=== PATIENT | female | born 1955 | race Caucasian/White ===

== ENCOUNTER → 2018-08-26 | Outpatient (CLI) | payer BC ==
--- NOTE | 2018-08-26 10:06 | XR ---
EXAMINATION TYPE: XR foot complete LT DATE OF EXAM: 08/26/2018 COMPARISON: NONE HISTORY: Pain TECHNIQUE: Three views are submitted. FINDINGS: The osseous structures are intact. There is no acute fracture or dislocation. Arthropathy first MT P. Diffuse osteopenia. Soft tissue ossification along the plantar aspect of the foot. Arthropathy of the intertarsal joints.. IMPRESSION: 1. Arthropathy.
== END | disposition home or self-care (01) ==
LOC: RADXRMAIN 09:40
PROVIDERS: ATTEND Podiatrist Foot Surgery
DX: M19.072 Primary osteoarthritis, left ankle and foot (principal); M77.42 Metatarsalgia, left foot; Q66.7 Congenital pes cavus

== ENCOUNTER → 2018-08-27 | Outpatient (CLI) | payer BC ==
--- NOTE | 2018-08-27 20:55 | XR ---
EXAMINATION TYPE: XR foot complete RT DATE OF EXAM: 08/27/2018 COMPARISON: NONE HISTORY: 63-year-old female right foot pain TECHNIQUE: 3 views FINDINGS: Bipartite tibial sesamoid. Mild degenerative change first MTP joint. Osteopenia. Incidental bone rand nd within the talar head. Bulky spurring at the plantar calcaneus and some small ossification along t he plantar fascia. No acute fracture, subluxation, or dislocation seen. IMPRESSION: 1. Bulky plantar calcaneal spurring could reflect reactive changes to plantar fasciitis or injury to the plantar fascia. 2. Mild first MTP joint OA. No acute osseous abnormality seen.
== END | disposition home or self-care (01) ==
LOC: RADXRMAIN 09:40
PROVIDERS: ATTEND Podiatrist Foot Surgery
DX: M19.071 Primary osteoarthritis, right ankle and foot (principal)

== ENCOUNTER → 2018-09-03 | Outpatient (CLI) | payer BC ==
[2018-09-03 11:30] LABS: Basophils # (A) 0.1 k/uL (0-0.2); Basophils % (A) 1 %; Eosinophils # (A) 0.3 k/uL (0-0.7); Eosinophils % (A) 5 %; HGB 13.7 gm/dL (11.4-16.0); Lymphocytes # (A) 1.7 k/uL (1.0-4.8); Lymphocytes % (A) 32 %; MCH 27.3 pg (25.0-35.0); MCHC 32.6 g/dL (31.0-37.0); MCV 83.7 fL (80.0-100.0); Mean Platelet Volume 7.3; Monocytes # (A) 0.2 k/uL (0-1.0); Monocytes % (A) 4 %; Neutrophils # (A) 3.1 k/uL (1.3-7.7); Neutrophils % (A) 56 %; Platelet Count 204 k/uL (150-450); RBC 5.02 m/uL (3.80-5.40); RDW 13.9 % (11.5-15.5); WBC 5.5 k/uL (3.8-10.6)
[2018-09-03 13:05] LABS: Erythrocyte Sedimentation Rate 5 mm/hr (0-20)
[2018-09-04 11:27] LABS: HLA B27 NEGATIVE
== END | disposition home or self-care (01) ==
LOC: LABWHC1 10:52
PROVIDERS: ATTEND Podiatrist Foot Surgery
DX: M89.471 Other hypertrophic osteoarthropathy, right ankle and foot (principal); M89.472 Other hypertrophic osteoarthropathy, left ankle and foot; M06.071 Rheumatoid arthritis without rheumatoid factor, right ankle and foot; M06.072 Rheumatoid arthritis without rheumatoid factor, left ankle and foot
CPT/HCPCS: 36415; 85025; 85652; 86038; 86812

== ENCOUNTER → 2018-11-12 | Outpatient (CLI) | payer BC ==
--- NOTE | 2018-11-13 08:13 | MM ---
Reason for exam: screening (asymptomatic). Last mammogram was performed 1 year and 1 month ago. History: Patient is postmenopausal. Family history of breast cancer in sister. Physical Findings: A clinical breast exam by your physician is recommended on an annual basis and results should be correlated with mammographic findings. MG 3D Screening Mammo W/Cad Bilateral CC and MLO view(s) were taken. Prior study comparison: October 16, 2017, mammogram. September 25, 2017, mammogram. January 11, 2016, mammogram. The breast tissue is heterogeneously dense. This may lower the sensitivity of mammography. There is no discrete abnormality. ASSESSMENT: Negative, BI-RAD 1 RECOMMENDATION: Routine screening mammogram of both breasts in 1 year.
== END | disposition home or self-care (01) ==
LOC: RADMAMWWP 10:25
PROVIDERS: ATTEND Family Medicine
DX: Z12.31 Encounter for screening mammogram for malignant neoplasm of breast (principal)
CPT/HCPCS: 77063; 77067

== ENCOUNTER → 2019-08-15 | Outpatient (CLI) | payer BC ==
--- NOTE | 2019-08-15 10:16 | CT ---
EXAMINATION TYPE: CT foot LT wo con DATE OF EXAM: 08/15/2019 COMPARISON: X-ray of the left foot 08/26/2018 HISTORY: Pain in left foot CT DLP: 230.8 mGycm Automated exposure control for dose reduction was used. Unenhanced CT of the left foot was performed in the bone and soft tissue window settings. Imaging was obtained in the axial, sagittal and coronal planes. 3-D reconstruction was obtained at a separate workstation. FINDINGS: There is no evidence for fracture or dislocation. No bony destructive process is noted. No evidence f or osteomyelitis. Moderate degenerative narrowing is seen throughout the various tarsal bones with de generative narrowing and spur formation noted. Plantar calcaneal spur formation seen. Bone island not ed of the tarsal cuboid. Degenerative narrowing also noted of the tarsometatarsal joints. No signific ant hallux valgus deformity seen. IMPRESSION: CHANGES OF OSTEOARTHRITIS NOTED.
== END | disposition home or self-care (01) ==
LOC: RADCTMAIN 07:56
PROVIDERS: ATTEND Orthopaedic Surgery Foot and Ankle Surgery
DX: M19.072 Primary osteoarthritis, left ankle and foot (principal); G62.9 Polyneuropathy, unspecified

== ENCOUNTER → 2020-04-07 | Outpatient (CLI) | payer BC ==
--- NOTE | 2020-04-09 11:28 | MM ---
Reason for exam: screening (asymptomatic). Last mammogram was performed 1 year and 5 months ago. History: Patient is postmenopausal. Family history of breast cancer in sister. Took estrogen for 3 months. Physical Findings: A clinical breast exam by your physician is recommended on an annual basis and results should be correlated with mammographic findings. MG 3D Screening Mammo W/Cad Bilateral CC and MLO view(s) were taken. Prior study comparison: November 12, 2018, bilateral MG 3d screening mammo w/cad. October 16, 2017, mammogram. ASSESSMENT: Benign, BI-RAD 2 RECOMMENDATION: Routine screening mammogram of both breasts in 1 year.
== END | disposition home or self-care (01) ==
LOC: RADMAMWWP 15:10
PROVIDERS: ATTEND Obstetrics & Gynecology
DX: Z12.31 Encounter for screening mammogram for malignant neoplasm of breast (principal)
CPT/HCPCS: 77063; 77067

== ENCOUNTER → 2022-02-03 | Outpatient (CLI) | payer MEDICARE ==
--- NOTE | 2022-02-06 08:17 | MM ---
Reason for Exam: Screening (asymptomatic). Last mammogram was performed 1 year(s) and 10 month(s) ago. Patient History: Menarche at age 16. First Full-Term at age 30. Left ovary removed at age 42. Right ovary removed at age 42. Hysterectomy at age 42. Postmenopausal. Estrogen for 3 months. Sister had breast cancer. Risk Values: Samra 5 year model risk: 2.9%. NCI Lifetime model risk: 11.3%. Prior Study Comparison: 10/16/2017 Screening Mammogram, Unknown. 11/12/2018 Bilateral Screening Mammogram, [facility]. 04/07/2020 Bilateral Screening Mammogram, [facility]. Tissue Density: The breast tissue is heterogeneously dense. This may lower the sensitivity of mammography. Findings: Analyzed By CAD. There is no suspicious group of microcalcifications or new suspicious mass in either breast. Overall Assessment: Negative, BI-RAD 1 Management: Screening Mammogram of both breasts in 1 year. A clinical breast exam by your physician is recommended on an annual basis and results should be correlated with mammographic findings. Electronically signed and approved by: Apolinar Chau M.D. Radiologis
== END | disposition home or self-care (01) ==
LOC: RADMAMWWP 14:32
PROVIDERS: ATTEND Obstetrics & Gynecology
DX: Z12.31 Encounter for screening mammogram for malignant neoplasm of breast (principal); Z78.0 Asymptomatic menopausal state; Z80.3 Family history of malignant neoplasm of breast; Z90.721 Acquired absence of ovaries, unilateral
CPT/HCPCS: 77063; 77067

== ENCOUNTER → 2024-03-18 | Outpatient (CLI) | payer MEDICARE, OTHER ==
[2024-03-18 13:15] LABS: African American GFR (CKD) >90 (>60 ml/min/1.73 sqM); Blood Urea Nitrogen 19 mg/dL (7-17); Non-African American GFR(CKD) 85 (>60 ml/min/1.73 sqM)
--- NOTE | 2024-03-18 15:29 | CT ---
EXAMINATION TYPE: CT chest w con DATE OF EXAM: 03/18/2024 1:33 PM COMPARISON: None. CLINICAL INDICATION: Female, 69 years old with history of R91.1 Solitary pulmonary nodule, lung nodul e TECHNIQUE: Axial images were obtained at 5 mm thick sections. Reconstructed images are reviewed on [employer] computer in the coronal plane. Contrast used:100 mL of Isovue 300 with IV Contrast, (none if empty) Oral contrast used: (none if empty) CT DLP: 350.10 mGycm, Automated exposure control for dose reduction was used. FINDINGS: Portion of the thyroid visualized is normal. No suspicious lung nodules or focal infiltrates are present. Solitary pulmonary nodule not identified . If the patient meets criteria, consider low-dose CT chest. No enlarged mediastinal or hilar adenopathy is evident. The ascending aorta diameter at the level o f the main pulmonary artery is 3.4 cm. The main pulmonary artery diameter at the bifurcation is 3.[address] sections are obtained through the upper abdomen. Abdomen is essentially unremarkable. IMPRESSION: 1. No acute abnormality CT chest. [facility], , 03/18/2024 3:26 PM
== END | disposition home or self-care (01) ==
LOC: RADCTMAIN 12:19
PROVIDERS: ATTEND Internal Medicine
DX: R91.1 Solitary pulmonary nodule (principal)
CPT/HCPCS: 82565; 84520; 71260; 36415; Q9967

== ENCOUNTER → 2024-03-26 | Outpatient (CLI) | payer MEDICARE, OTHER ==
[2024-03-26 10:04] LABS: Influenza A Not Detected (Not Detectd); Influenza B Not Detected (Not Detectd); RSV Not Detected (Not Detectd)
== END | disposition home or self-care (01) ==
LOC: LABWHC1 09:05
PROVIDERS: ATTEND Internal Medicine
DX: R39.9 Unspecified symptoms and signs involving the genitourinary system (principal)
CPT/HCPCS: 87636